=== PATIENT | male | born 1950 | race Caucasian/White ===

== ENCOUNTER → 2016-10-24 | Outpatient (CLI) | payer OTHER | LOC: VM.DI 11:04 | PROVIDERS: ATTEND Family Medicine | DX: M25.511 Pain in right shoulder (principal); G89.29 Other chronic pain; S46.011A Strain of muscle(s) and tendon(s) of the rotator cuff of right shoulder, initial encounter; S46.811A Strain of other muscles, fascia and tendons at shoulder and upper arm level, right arm, initial encounter; M19.011 Primary osteoarthritis, right shoulder; X58.XXXA Exposure to other specified factors, initial encounter | CPT/HCPCS: 70140; 73221-RT ==

== ENCOUNTER 2018-12-10 06:38 | Day surgery (SDC) | payer MEDICARE, OTHER ==
[2018-12-10] MEDS ORDERED: Lactated Ringers 1,000 ML IV SCH (07:00)
[2018-12-10] MEDS ORDERED: fentaNYL 100 MCG/2 ML SDV ONE (07:52)
[2018-12-10] MEDS ORDERED: Propofol 200 MG/20 ML SDV ONE (07:52)
--- NOTE | 2018-12-10 12:42 | OR ---
PREOPERATIVE DIAGNOSIS: Screening colonoscopy. POSTOPERATIVE DIAGNOSIS: Cecal polyps x2. PROCEDURE PROPOSED: Total flexible colonoscopy. PROCEDURE DONE: Total flexible colonoscopy with hot snare polypectomy x1, cold biopsy forceps polypectomy x1. INDICATION: This is a 68-year-old gentleman who comes in for his 1st colonoscopic exam for screening purposes. He denies any symptomatology and he has a negative family history for colon cancer. TECHNIQUE: The patient brought to the endoscopy suite, placed in left lateral decubitus position. He was sedated per PSYCH THERAPIST with propofol. The flexible video colonoscope was then passed transanally and under visualization advanced to the cecum. In the cecal area, he was found to have a small flattish polyp removed by hot snare technique using the barbed snare and this was submitted for pathologic examination. There was another small polyp in the cecal region removed with 1 bite of the cold biopsy forceps also submitted for pathologic examination. The transverse and descending colon were unremarkable. The sigmoid colon revealed moderate diverticulosis and the rectum was normal. The scope was then withdrawn. He tolerated the procedure well. FINAL IMPRESSION: 1. Cecal polyps x2, removed. 2. Sigmoid diverticulosis. PLAN: He will be sent a letter with pathology report and he likely should have a 5-year followup exam because of his polyps. SCM: 12/10/2018 09:10:40 MODL: 12/10/2018 12:26:26 /[id number]
--- NOTE | 2018-12-22 08:42 | LETTER ---
12/20/2018 RE: ETIENNE SNOWGE : 1950 Dear Mr. Seals: The polyp removed from your colon was a fairly large tubular adenoma, which is considered a precancerous-type polyp. Because of its size, I would encourage you to have a 3-year followup exam of your colon and make sure you have not formed any new polyps. If none are found on that examination, you could spread your examinations out to every 5 years thereafter. Respectfully,
== END 2018-12-10 10:15 | disposition home or self-care (01) ==
LOC: VM.SDS 06:38
PROVIDERS: ATTEND Surgery
DX: Z12.11 Encounter for screening for malignant neoplasm of colon (principal); D12.0 Benign neoplasm of cecum; K57.30 Diverticulosis of large intestine without perforation or abscess without bleeding; I48.0 Paroxysmal atrial fibrillation; E78.2 Mixed hyperlipidemia; K21.9 Gastro-esophageal reflux disease without esophagitis; G47.30 Sleep apnea, unspecified; Z87.891 Personal history of nicotine dependence; Z79.82 Long term (current) use of aspirin; Z79.899 Other long term (current) drug therapy; Z91.018 Allergy to other foods
CPT/HCPCS: 00812; 45380; 45385; 88305; J2704; J3010; J7120

== ENCOUNTER 2021-05-17 08:56 | Emergency (ER) | payer MEDICARE, OTHER ==
[2021-05-17] MEDS ORDERED: Sodium Chloride 0.9% 10 ML Syringe FLUSH PRN (09:16)
[2021-05-17] MEDS ORDERED: Diltiazem 50 MG/10 ML SDV IVPUSH ONE (09:18)
[2021-05-17] MEDS ORDERED: Lactated Ringers 1,000 ML IV ONE ×2 (09:41→09:55)
--- NOTE | 2021-05-17 09:53 | EDM.PDOC ---
ED HPI GENERAL MEDICAL PROBLEM - General Chief Complaint: Cardiovascular Problem Stated Complaint: IRREGULAR HEART RATE Time Seen by Provider: 05/17/21 09:00 Source of Information: Reports: Patient History Limitations: Reports: No Limitations - History of Present Illness INITIAL COMMENTS - FREE TEXT/NARRATIVE: Patient comes emergency department today from home as he was referred here from the clinic due to tachycardia. This patient has a history of paroxysmal atrial fibrillation. He has never had an ablation or placed on any therapy for it. He has episodes about once to twice a month where he feels his heart is pounding and he has a burning sensation in his mid sternum. Usually is self resolving and he does not seek any treatment for this. He was seen in the clinic yesterday for sinus infection and was started on amoxicillin and today they noted his heart rate was quite high in the clinic yesterday so he was called and told to come to the emergency department. Upon arrival he does relate that he can feel his heart beating fast. He has no weakness dizziness lightheadedness. No syncope. He has no chest pain discomfort heaviness pressure. He relates that he has a somewhat buzzing sensation in his chest. He has no difficulty breathing cough or congestion. No fever no chills. He has had no recent nausea vomiting or diarrhea. No abdominal pain. No hematuria dysuria or urinary frequency. - Related Data Allergies Allergy/AdvReac Type Severity Reaction Status Date / Time cashews Allergy Other Uncoded 05/17/21 09:55 tree nuts Allergy Other Uncoded 05/17/21 09:55 Home Meds: Home Meds Aspirin [Ecotrin] 81 mg PO DAILY 12/09/18 [History] Diltiazem [Cardizem CD] 120 mg PO DAILY #30 cap.er 05/17/21 [Rx] Past Medical History Cardiovascular History: Reports: Afib, High Cholesterol Other Cardiovascular History: HX chest pain Respiratory History: Reports: Sleep Apnea Gastrointestinal History: Reports: Diverticulosis, GERD Genitourinary History: Reports: Other (See Below) - Past Surgical History Musculoskeletal Surgical History: Reports: Arthroscopic Knee, Shoulder Surgery ED ROS GENERAL - Review of Systems Review Of Systems: Comprehensive ROS is negative, except as noted in HPI. ED EXAM, GENERAL - Physical Exam Exam: See Below Exam Limited By: No Limitations General Appearance: Alert, WD/WN, No Apparent Distress Eye Exam: Bilateral Eye: EOMI, PERRL Ears: Normal External Exam Nose: Normal Inspection Throat/Mouth: Normal Inspection Head: Atraumatic, Normocephalic Neck: Normal Inspection, Supple, Non-Tender Respiratory/Chest: No Respiratory Distress, Lungs Clear, Normal Breath Sounds, No Accessory Muscle Use, Chest Non-Tender Cardiovascular: Normal Peripheral Pulses, Regular Rate, Rhythm, No Murmur, Tachycardia GI/Abdominal: Normal Bowel Sounds, Soft, Non-Tender (Male) Exam: Deferred Rectal (Males) Exam: Deferred Back Exam: Normal Inspection, Full Range of Motion Extremities: Normal Inspection, Normal Range of Motion, No Pedal Edema, Normal Capillary Refill Neurological: Alert, Oriented, CN II-XII Intact, Normal Cognition, No Motor/Sensory Deficits Psychiatric: Normal Affect, Normal Mood Skin Exam: Warm, Dry, Intact, Normal Color, No Rash Lymphatic: No Adenopathy Course - Vital Signs Last Recorded V/S: Last Vital Signs Temp 97.4 F 05/17/21 08:59 Pulse 76 05/17/21 11:01 Resp 14 05/17/21 11:01 BP 104/75 05/17/21 11:01 Pulse Ox 97 05/17/21 11:01 - Orders/Labs/Meds Orders: Active Orders 24 hr Category Date Time Status Peripheral IV Insertion Adult [OM.PC] Stat Oth 05/17/21 09:16 Ordered Labs: Laboratory Tests 05/17/21 05/17/21 Range/Units 09:18 09:18 WBC 7.9 (4.0-10.0) x10^3/uL RBC 5.14 (4.5-6.0) x10^6/uL Hgb 16.1 (14.0-18.0) g/dL Hct 45.5 (40.0-52.0) % MCV 88.5 (78.0-93.0) fL MCH 31.3 (26.0-32.0) pg MCHC 35.4 (32.0-36.0) g/dL RDW Coeff of Sami 13.2 (10.0-15.0) % Plt Count 160 (130-400) x10^3/uL Neut % (Auto) 66.2 (50.0-80.0) % Lymph % (Auto) 20.2 L (25.0-50.0) % Payette % (Auto) 11.6 H (2.0-11.0) % Eos % (Auto) 1.7 (0.0-4.0) % Baso % (Auto) 0.3 (0.2-1.2) % Sodium 140 (136-145) mmol/L Potassium 4.2 (3.5-5.1) mmol/L Chloride 105 (98-107) mmol/L Carbon Dioxide 26 (21-32) mmol/L Anion Gap 13.2 (5-15) mmol/L BUN 26 H (7-18) mg/dL Creatinine 1.1 (0.70-1.30) mg/dL Est Cr Clr Drug Dosing TNP Estimated GFR (MDRD) > 60 Glucose 115 H (70-99) mg/dL Calcium 8.6 (8.5-10.1) mg/dL Corrected Calcium 9.2 (8.5-10.1) mg/dL Magnesium 2.2 (1.8-2.4) mg/dL Total Bilirubin 0.5 (0.2-1.0) mg/dL AST 16 (15-37) U/L ALT 15 L (16-63) U/L Alkaline Phosphatase 91 (46-116) U/L Troponin I High Sens 40 (<=76) ng/L Total Protein 7.2 (6.4-8.2) g/dL Albumin 3.3 L (3.4-5.0) g/dL Globulin 3.9 Albumin/Globulin Ratio 0.85 TSH, Ultra Sensitive 2.306 (0.358-3.74) uIU/mL Meds: Medications Discontinued Medications Generic Name Dose Route Start Last Admin Trade Name Freq PRN Reason Stop Dose Admin Diltiazem HCl 25 mg 05/17/21 09:18 05/17/21 09:33 Diltiazem 50 Mg/10 Ml Sdv IVPUSH 05/17/21 09:19 25 mg ONETIME ONE Administration Diltiazem HCl 120 mg 05/17/21 10:11 05/17/21 10:22 Diltiazem 120 Mg Cap.Cd PO 05/17/21 10:12 120 mg ONETIME ONE Administration Lactated Ringer's 1,000 mls @ 1,000 mls/hr 05/17/21 09:41 05/17/21 09:42 Ringers, Lactated IV 07/30/21 10:40 1,000 mls/hr ONETIME ONE Administration Lactated Ringer's 1,000 mls @ 999 mls/hr 05/17/21 09:55 Ringers, Lactated IV 05/17/21 10:55 ONETIME ONE Sodium Chloride 10 ml 05/17/21 09:16 Sodium Chloride 0.9% 10 Ml Syringe FLUSH ASDIRECTED PRN Keep Vein Open - Re-Assessments/Exams Free Text/Narrative Re-Assessment/Exam: 05/17/21 10:07 EKG upon arrival shows most likely an a flutter with a rate of 140s with inferior elevation most likely rate related. No chest pain. IV established labs were drawn. Cardizem 25mg IVP slowly with rate control to 70s and clearly is now in A flutter with a variable rate of about 4:1. No chest burning symptoms and blood pressure stable. 1 liter of LR wide open. Labs are rather unremarkable with a normal troponin as well as electrolytes. Normal TSH. His Chadsvasc 2 score is 1 so low risk of thrombotic event. I did review his last echocardiogram that was completed at [facility] in [place] 12-23-17 he had a visually estimated ejection fraction of 60%. With a grade 1 left ventricular diastolic dysfunction. I called and spoke with Dr. Pierre HPI ER COURSE findings and concerns were relayed to her verbally over the phone. Her guidance is start on cardizem 120 CD daily with a normal EF and follow up in the cardiology clinic at [facility]. No anticoagulation at this time with a low Chadsvasc 2 score. Cardizem CD 120mg PO given in the ED. Will monitor in the ED for a period of time to ensure his rate stays controlled. The patient was monitored in the emergency department over the next couple of hours. His heart rate remained in the 70s. He had continued variable ratio of atrial flutter. He had no chest buzzing no chest pain. No weakness dizziness lightheadedness. We will not place him on anticoagulation at this time as his Thom vas score is very low. We did contact cardiology to make a follow-up appointment with him and they will contact him when they are able to get him in in the near future. Discharge instructions as below are explained to the patient he was comfortable with this plan his questions were answered. Departure - Departure Time of Disposition: 12:00 Disposition: Home, Self-Care 01 Clinical Impression: Atrial flutter Qualifiers: Atrial flutter type: typical Qualified Code(s): I48.3 - Typical atrial flutter Prescriptions: Diltiazem [Cardizem CD] 120 mg PO DAILY #30 cap.er Instructions: Atrial Flutter Referrals: Ernesto Coronel MD [Primary Care Provider] - Forms: ED Department Discharge Additional Instructions: [facility] will contact you for follow up appointment with them. Start Cardizem CD 120mg 1 tablet daily. RX sent to your pharmacy. Continue your previous therapies. Return to the ED if new or worsening symptoms especially Chest pain, passing out, Shortness of breath or racing heart sensation. Follow up with PCP in the next week for recheck. As a side note for sinuses, Consider OTC nasal rinse with a Netti Pot twice daily. Then flonase OTC 1 spray each nostril twice daily for a week and then 1 spray each nostril daily. Sepsis Event Note (ED) - Evaluation Sepsis Screening Result: No Definite Risk - Focused Exam Vital Signs: Vital Signs Temp Pulse Pulse Resp BP BP Pulse Ox 05/17/21 11:01 76 14 104/75 97 05/17/21 10:22 75 103/69 05/17/21 10:05 72 14 103/69 97 05/17/21 09:43 75 14 113/73 98 05/17/21 08:59 97.4 F 143 H 18 125/57 L 98 - My Orders Last 24 Hours: My Active Orders 05/17/21 09:16 Peripheral IV Insertion Adult [OM.PC] Stat - Assessment/Plan Last 24 Hours: My Active Orders 05/17/21 09:16 Peripheral IV Insertion Adult [OM.PC] Stat
[2021-05-17 09:55] LABS: ANION GAP 13.2 mmol/L (5-15); CHLORIDE,CL 105 mmol/L (98-107); SODIUM,NA 140 mmol/L (136-145)
--- NOTE | 2021-05-17 09:55 | PCM.EKG ---
#1 Interpretation EKG Date: 05/17/21 Time: 09:06 Rhythm: A-Flutter Rate (Beats/Min): 143 [place]: Normal P-Wave: Present QRS: Normal ST-T: Elevated (Inferiorly. Most likely from rate.) QT: Prolonged (508) Comparison: Change From Previous EKG #2 Interpretation EKG Date: 05/17/21 (S/P 25mg Cardizem) Time: 09:41 Rhythm: A-Flutter (4:1) Rate (Beats/Min): 75 [place]: Normal P-Wave: Present QRS: Normal ST-T: Elevated (Improved with rate control.) QT: Normal Comparison: Change From Previous EKG (Rate improved after cardizem.)
[2021-05-17] MEDS ORDERED: Diltiazem 120 MG Cap.CD PO ONE (10:11)
== END 2021-05-17 11:34 | disposition home or self-care (01) ==
LOC: VM.ED 08:56
DX: I48.3 Typical atrial flutter (principal); Z91.010 Allergy to peanuts; Z79.82 Long term (current) use of aspirin
CPT/HCPCS: 80053; 83735; 84443; 84484; 85025; 93005; 96374; 99284; 99285-25; A9270-GY; J3490; J7120

== ENCOUNTER 2023-04-19 11:45 | Emergency (ER) | payer MEDICARE, OTHER ==
[2023-04-19] MEDS ORDERED: Doxycycline Monohydrate 100 MG Cap PO ONE (12:01)
== END 2023-04-19 12:14 | disposition home or self-care (01) ==
LOC: VM.ED 11:45
DX: S70.11XA Contusion of right thigh, initial encounter (principal); L03.115 Cellulitis of right lower limb; Z91.018 Allergy to other foods; Z79.82 Long term (current) use of aspirin; W57.XXXA Bitten or stung by nonvenomous insect and other nonvenomous arthropods, initial encounter
CPT/HCPCS: 99282; A9270-GY